=== PATIENT | male | born 1965 | race Two or more races ===

== ENCOUNTER 2019-06-23 17:20 | Emergency (ER) | payer SELFPAY ==
[~2019-06-23] VITALS: Ht 177.8 cm; Wt 70.8 kg
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
[2019-06-23] MEDS ORDERED: IBUPROFEN 600 MG TABLET PO ONE ×2 (17:51→18:00)
[2019-06-23] MEDS ORDERED: TDAP [DIPH/PERTUSSIS/TET] 0.5 ML VIAL IM ONE ×2 (17:54→18:00)
--- NOTE | 2019-06-23 18:34 | NUR ---
Patient discharged to home in stable condition. Written and verbal after care instructions given. Patient verbalizes understanding of instruction and RX. pt ambulatory with a steady gait.
[2019-06-23 18:35] VITALS: BP 132/72
== END 2019-06-23 18:40 | disposition home or self-care (01) ==
LOC: ER 17:20
DX: T63.511A Toxic effect of contact with stingray, accidental (unintentional), initial encounter (principal); Y92.89 Other specified places as the place of occurrence of the external cause
CPT/HCPCS: 73630-TC; 90715